=== PATIENT | female | born 2000 | race Two or more races ===

== ENCOUNTER 2022-05-10 12:49 | Inpatient (IN) | payer OTHER ==
[~2022-05-10] VITALS: Ht 165.1 cm; Wt 4.1 kg
[2022-05-10] MEDS ORDERED: PRENATAL TABLE1 EAC3 PO (13:22)
[2022-05-10] MEDS ORDERED: CHILDREN'S ASPI81 MG PO (13:22)
== END 2022-05-13 14:42 | disposition home or self-care (01) | DRG 788 ==
LOC: LDR 12:49 → OB/GYN 20:45
PROVIDERS: ADMIT Obstetrics & Gynecology Obstetrics; ATTEND Obstetrics & Gynecology Obstetrics
PROC: 4A1HXCZ Monitoring of Products of Conception, Cardiac Rate, External Approach (ICD-10-PCS; 2022-05-10)
PROC: 10D00Z1 Extraction of Products of Conception, Low, Open Approach (ICD-10-PCS; principal; 2022-05-10 15:00)
DX: O36.63X0 Maternal care for excessive fetal growth, third trimester, not applicable or unspecified (principal); O34.211 Maternal care for low transverse scar from previous cesarean delivery; Z3A.38 38 weeks gestation of pregnancy; Z37.0 Single live birth; Z20.822 Contact with and (suspected) exposure to COVID-19